=== PATIENT | male | born 1995 | race Caucasian/White ===

== ENCOUNTER 2018-11-09 19:51 | Emergency (ER) | payer BC ==
[2018-11-09 21:07] LABS: Hematocrit 44 % (42-52); Hemoglobin 15.5 g/dL (14.0-18.0); Mean Corpuscular HGB Conc 35 g/dL (31-36); Mean Corpuscular Hemoglobin 30 pg (27-31); Mean Corpuscular Volume 87 fL (80-94); Mean Platelet Volume 8.9 fL (7.4-10.4); Platelet Count 204 10^3/uL (150-450); Red Blood Count 5.09 10^6 /uL (4.18-5.48); Red Cell Distribution Width 13 % (10.5-15); White Blood Count 7.5 10^3/uL (3.5-10.8)
[2018-11-09 21:19] LABS: INR 1.13 (0.82-1.09)
[2018-11-09 21:24] LABS: Albumin 4.5 g/dL (3.2-5.2); Albumin/Globulin Ratio 1.4 (1-3); BUN/Creatinine Ratio 14.9 (8-20); Calcium 10.3 mg/dL (8.6-10.3); EGFR Non-African American 110.8 (>60); Globulin 3.3 g/dL (2-4); Potassium 3.7 mmol/L (3.5-5.0); Total Bilirubin 2.6 mg/dL (0.2-1.0); Total Protein 7.8 g/dL (6.4-8.9)
[2018-11-09 21:50] LABS: ABS Basophils 0.1 10^3/ul (0-0.2); ABS Eosinophils 0.1 10^3/ul (0-0.6); ABS Monocytes 0.5 10^3/ul (0-0.8); ABS Neutrophils 3.8 10^3/ul (1.5-7.7); Eosinophil % 0.8 %; Lymphocyte % 40.6 %; Nucleated Red Blood Cells % 0.3
[2018-11-09] MEDS ORDERED: NS 0.9% 1000 ML** 1,000 ML IV ONE (22:20)
--- NOTE | 2018-11-09 23:08 | ED ---
Complex/Multi-Sys Presentation - HPI Summary HPI Summary: Left upper quadrant abdominal pain 1 week. History of same. Not worse with eating, not worse with anything. Improved with Tums. Pain described as intermittent, at worse 5/10, lasts a few hours at a time. One episode of vomiting yesterday that contained black emesis. Patient also complains of episode of lightheadedness with syncopal episode today. Patient believes he hit his head on the toilet, with some pain to posterior head. Denies any other pain injury or symptoms. Denies fever, cough, sore throat, CP, SOB, diarrhea, change in urine, change in BM, penile or testicular symptoms, vision change, focal deficits, amnesia, oral trauma. Medical history is asthma. Nonsmoker, denies EtOH or recreational drug use. - History Of Current Complaint Chief Complaint: EDGIBleed Time Seen by Provider: 11/09/18 22:07 Hx Obtained From: Patient Onset/Duration: Gradual Onset, Lasting Days Timing: Intermittent, Lasting: Severity Currently: Moderate Severity Initially: Moderate Character: Dull Associated Signs And Symptoms: Positive: Nausea, Vomiting, Abdominal Pain - Allergies/Home Medications Allergies/Adverse Reactions: Allergies Allergy/AdvReac Type Severity Reaction Status Date / Time MS Cephalexin [Cephalexin] Allergy Mild rash Unverified 11/09/18 19:58 PMH/Surg Hx/FS Hx/Imm Hx Endocrine/Hematology History: Denies: Hx Anticoagulant Therapy Cardiovascular History: Denies: Hx Pacemaker/ICD Respiratory History: Reports: Hx Asthma History: Denies: Hx Dialysis Sensory History: Denies: Hx Eye Prosthesis Opthamlomology History: Denies: Hx Legally Blind EENT History: Denies: Hx Deafness Neurological History: Denies: Hx Dementia Psychiatric History: Denies: Hx Autism Infectious Disease History: No Infectious Disease History: Denies: Traveled Outside the [place] in Last 30 Days - Family History Known Family History: Positive: None - Social History Alcohol Use: Weekly Substance Use Type: Reports: None Smoking Status (MU): Never Smoked Tobacco Review of Systems Constitutional: Negative Eyes: Negative ENT: Negative Cardiovascular: Negative Respiratory: Negative Positive: Abdominal Pain, Vomiting, Nausea Genitourinary: Negative Musculoskeletal: Negative Skin: Negative Positive: Syncope Psychological: Normal All Other Systems Reviewed And Are Negative: Yes Physical Exam - Summary Physical Exam Summary: Small contusion to back of posterior head. No other evidence of trauma to mouth , face, head. Full range of motion of jaw and neck. No pain with palpation of back, chest wall, abdomen. Patient moving all 4 extremities freely without indication of pain. Abdomen soft nontender. Lung sounds clear to auscultation bilaterally. RRR. Triage Information Reviewed: Yes Vital Signs On Initial Exam: Initial Vitals Temp Pulse Resp BP Pulse Ox 95.5 F 103 18 124/83 97 11/09/18 19:56 11/09/18 19:56 11/09/18 19:56 11/09/18 19:56 11/09/18 19:56 Vital Signs Reviewed: Yes Appearance: Positive: Well-Appearing Skin: Positive: Warm Head/Face: Positive: Normal Head/Face Inspection Eyes: Positive: Normal ENT: Positive: Normal ENT inspection Dental: Negative: Dental Fracture @, Bleeding Neck: Positive: Supple Respiratory/Lung Sounds: Positive: Clear to Auscultation Cardiovascular: Positive: Normal Abdomen Description: Positive: Nontender Musculoskeletal: Positive: Normal Neurological: Positive: Normal Psychiatric: Positive: Normal AVPU Assessment: Alert - Dayan Coma Scale Best Eye Response: 4 - Spontaneous Best Motor Response: 6 - Obeys Commands Best Verbal Response: 5 - Oriented Coma Scale Total: 15 Diagnostics - Vital Signs Vital Signs Temp Pulse Resp BP Pulse Ox 11/09/18 19:56 95.5 F 103 18 124/83 97 - Laboratory Lab Results: Lab Results 11/09/18 11/09/18 11/09/18 Range/Units 20:59 20:59 20:59 WBC 7.5 (3.5-10.8) 10^3/uL RBC 5.09 (4.18-5.48) 10^6 /uL Hgb 15.5 (14.0-18.0) g/dL Hct 44 (42-52) % MCV 87 (80-94) fL MCH 30 (27-31) pg MCHC 35 (31-36) g/dL RDW 13 (10.5-15) % Plt Count 204 (150-450) 10^3/uL MPV 8.9 (7.4-10.4) fL Neut % (Auto) 50.3 % Lymph % (Auto) 40.6 % [place] % (Auto) 7.1 % Eos % (Auto) 0.8 % Baso % (Auto) 1.2 % Absolute Neuts (auto) 3.8 (1.5-7.7) 10^3/ul Absolute Lymphs (auto) 3.0 (1.0-4.8) 10^3/ul Absolute Monos (auto) 0.5 (0-0.8) 10^3/ul Absolute Eos (auto) 0.1 (0-0.6) 10^3/ul Absolute Basos (auto) 0.1 (0-0.2) 10^3/ul Absolute Nucleated RBC 0.0 10^3/ul Immature Gran % 3.0 (0-9) % Neutrophils % 37.0 % Band Neutrophils % 3.0 (0-8) % Lymphocytes % 41.0 % Reactive Lymphs % 16.0 H (0-6) % Monocytes % 3.0 % Nucleated RBC % 0.3 Normal RBC Morphology Normal (Normal) Hem Pathologist Commnt Pending INR (Anticoag Therapy) 1.13 H (0.82-1.09) APTT 38.0 (26.0-38.0) seconds Sodium 136 (135-145) mmol/L Potassium 3.7 (3.5-5.0) mmol/L Chloride 99 L (101-111) mmol/L Carbon Dioxide 25 (22-32) mmol/L Anion Gap 12 H (2-11) mmol/L BUN 13 (6-24) mg/dL Creatinine 0.87 (0.67-1.17) mg/dL Est GFR ( Amer) 134.0 (>60) Est GFR (Non-Af Amer) 110.8 (>60) BUN/Creatinine Ratio 14.9 (8-20) Glucose 115 H (70-100) mg/dL Calcium 10.3 (8.6-10.3) mg/dL Total Bilirubin 2.60 H (0.2-1.0) mg/dL AST 324 H (13-39) U/L ALT 602 H (7-52) U/L Alkaline Phosphatase 165 H (34-104) U/L Total Protein 7.8 (6.4-8.9) g/dL Albumin 4.5 (3.2-5.2) g/dL Globulin 3.3 (2-4) g/dL Albumin/Globulin Ratio 1.4 (1-3) Monoscreen Positive A (Negative) Result Diagrams: 11/09/18 20:59 11/09/18 20:59 Lab Statement: Any lab studies that have been ordered have been reviewed, and results considered in the medical decision making process. Complex Multi-Symp Course/Dx Course Of Treatment: Left upper quadrant abdominal pain 1 week. History of same. Not worse with eating, not worse with anything. Improved with Tums. Pain described as intermittent, at worse 5/10, lasts a few hours at a time. One episode of vomiting yesterday that contained black emesis. Patient also complains of episode of lightheadedness with syncopal episode today. Patient believes he hit his head on the toilet, with some pain to posterior head. Denies any other pain injury or symptoms. Denies fever, cough, sore throat, CP , SOB, diarrhea, change in urine, change in BM, penile or testicular symptoms, vision change, focal deficits, amnesia, oral trauma. Medical history is asthma. Nonsmoker, denies EtOH or recreational drug use. Physical exam:Small contusion to back of posterior head. No other evidence of trauma to mouth, face , head. Full range of motion of jaw and neck. No pain with palpation of back, chest wall, abdomen. Patient moving all 4 extremities freely without indication of pain. Abdomen soft nontender. Lung sounds clear to auscultation bilaterally. RRR. Vital signs within normal limits. Elevated liver enzymes. Labs otherwise unremarkable. Positive for mononucleosis. - Diagnoses Provider Diagnoses: Mononucleosis, GERD (gastroesophageal reflux disease) Discharge - Sign-Out/Discharge Documenting (check all that apply): Patient Departure Patient Received Moderate/Deep Sedation with Procedure: No - Discharge Plan Condition: Stable Disposition: HOME Prescriptions: Omeprazole 20 mg PO DAILY 30 Days #30 capsule. Patient Education Materials: Mononucleosis (ED), Gastroesophageal Reflux Disease (ED) Forms: *Work Release Referrals: No Primary Care Phys,NOPCP [Primary Care Provider] - Additional Instructions: Drink plenty of fluids to maintain hydration. Alternate ibuprofen 600 mg with Tylenol 650 mg every 3 hours for aches and fever. Return to the ED for any new or worsening symptoms. - Billing Disposition and Condition Condition: STABLE Disposition: Home
[2018-11-09] MEDS ORDERED: Pantoprazole TAB * 40 MG TAB PO ONE (23:14)
[2018-11-10 00:07] LABS: HIV 4th Generation Negative (Negative)
[2018-11-10 00:19] VITALS: BP 138/89
== END 2018-11-10 00:38 | disposition home or self-care (01) ==
LOC: ED 19:51
DX: B27.90 Infectious mononucleosis, unspecified without complication (principal); K21.9 Gastro-esophageal reflux disease without esophagitis; J45.909 Unspecified asthma, uncomplicated; S00.93XA Contusion of unspecified part of head, initial encounter; W22.8XXA Striking against or struck by other objects, initial encounter; R55 Syncope and collapse
CPT/HCPCS: 36415; 80053; 85025; 85060; 85610; 85730; 86308; 87389; 93005; 96360; 99283; A9270-GY

== ENCOUNTER 2019-06-06 11:45 | Emergency (ER) | payer BC ==
--- NOTE | 2019-06-06 11:55 | ED ---
HPI Chest Pain - HPI Summary HPI Summary: Patient is a 23 y/o M presenting to the ED for a chief complaint of left anterior chest pain that radiates to the left flank and back. Patient is present with his mother and sister. Patient describes his chest pain as a cramping sensation, which is currently resolved. The chest pain began at the beginning of May and occurs twice every other day, lasting 1-5 minutes before resolving. He also notes nausea and shortness of breath. Patient denies diaphoresis or bilateral LE edema. Patient denies any aggravating or alleviating factors. He denies similar chest pain since it began in May. He was previously seen at [place] by his PCP for his chest pain. FMHx is significant for cardiac disease and [place], but denies a in his family from an unexplained cause at an early age. Any PSHx, medications, or long distance travel is denied. He denies any tobacco, alcohol, or drug use. Patient works at an [employer] shop. Medications reviewed. Allergies noted. - History of Current Complaint Time Seen by Provider: 06/06/19 11:49 Hx Obtained From: Patient Onset/Duration: Started Days Ago, Atraumatic, Resolved Timing: Intermittent, Lasting Minutes - 1-5 minutes Initial Severity: Moderate Current Severity: Moderate Pain Intensity: 0 Pain Scale Used: 0-10 Numeric Chest Pain Location: Left Anterior Chest Pain Radiates: Yes Chest Pain Radiates To:: Back, Flank - Left Character: Other: - Cramping Aggravating Factor(s): Nothing Alleviating Factor(s): Nothing Associated Signs and Symptoms: Positive: Chest Pain, Shortness of Breath, Nausea , Back Pain. Negative: Diaphoresis, Edema - Bilateral LE - Allergy/Home Medications Allergies/Adverse Reactions: Allergies Allergy/AdvReac Type Severity Reaction Status Date / Time ceftriaxone Allergy Hives Verified 06/06/19 12:32 PMH/Surg Hx/FS Hx/Imm Hx Previously Healthy: Yes Endocrine/Hematology History: Denies: Hx Anticoagulant Therapy, Hx Diabetes Cardiovascular History: Denies: Hx Hypercholesterolemia, Hx Hypertension, Hx Pacemaker/ICD Respiratory History: Reports: Hx Asthma History: Denies: Hx Dialysis Sensory History: Denies: Hx Eye Prosthesis, Hx Legally Blind, Hx Deafness Opthamlomology History: Denies: Hx Eye Prosthesis, Hx Legally Blind EENT History: Denies: Hx Deafness Neurological History: Denies: Hx Dementia Psychiatric History: Denies: Hx Autism - Surgical History Surgical History: None Surgery Procedure, Year, and Place: None Infectious Disease History: No - Family History Known Family History: Positive: Cardiac Disease - [place] - Social History Occupation: Employed Full-time Lives: With Family Alcohol Use: Weekly Hx Substance Use: No Substance Use Type: Reports: None Hx Tobacco Use: No Smoking Status (MU): Never Smoked Tobacco Review of Systems Negative: Skin Diaphoresis Positive: Chest Pain - Left anterior Positive: Shortness Of Breath Positive: Nausea Positive: flank pain - Left Positive: Myalgia - Back. Negative: Edema - Bilateral LE All Other Systems Reviewed And Are Negative: Yes Physical Exam - Summary Physical Exam Summary: Constitutional: Well-developed, Well-nourished, Alert. Appears anxious. Skin: Warm, Dry HENT: Normocephalic; Atraumatic Eyes: Conjunctiva normal Neck: Musculoskeletal ROM normal neck. (-) JVD, (-) Stridor, (-) Tracheal deviation Cardio: Rhythm regular, tachycardic, Heart sounds normal; Intact distal pulses; Radial pulses are 2+ and symmetric. (-) Murmur Pulmonary/Chest wall: Effort normal. (-) Respiratory distress, (-) Wheezes, (-) Rales Abd: Soft, (-) Distension, (-) Guarding, (-) Rebound. Mild LUQ tenderness. Musculoskeletal: (-) Edema Lymph: (-) Cervical adenopathy Neuro: Alert, Oriented x3 Psych: Mood and affect Normal Triage Information Reviewed: Yes Vital Signs Reviewed: Yes Procedures - Sedation Patient Received Moderate/Deep Sedation with Procedure: No Diagnostics - Laboratory Result Diagrams: 06/06/19 12:00 06/06/19 13:46 Lab Statement: Any lab studies that have been ordered have been reviewed, and results considered in the medical decision making process. - Radiology Chest X-ray Radiology Interpretation Completed By: Radiologist Summary of Radiographic Findings: Chest X-ray IMPRESSION: No acute cardiopulmonary process by radiograph. Reviewed by Dr. Oneal. - EKG 11:48 Cardiac Rate: Tachycardia - 124 BPM EKG Rhythm: Sinus Tachycardia ST Segment: Normal Ectopy: None Summary of EKG Findings: EKG at 11:48 shows sinus tachycardia with 124 BPM, Q3 and T3, no STEMI. Reviewed and interpreted by Dr. Oneal. Re-Evaluation - Re-Evaluation First Eval Re-Evaluation Time: 13:07 Change: Improved Comment: At 13:07, heart rate is in the 70s, patient is asymptomatic. Chest Pain Course/Dx - Course Course Of Treatment: Patient was sent in from his primary care doctor. Patient' s had a couple weeks of periodic left upper quadrant pain that radiate into his chest. Patient was tachycardic upon arrival which improved with pulmonary of IV fluids. Patient had blood work form is grossly unremarkable including studies for the thyroid, PE, electrolyte abnormalities. Patient had a negative chest x-ray. Patient's heart rate went back to normal level. Patient does state he feels anxious and a lot of stuff in his life including a recent in the family. He was educated on breathing techniques and started on omeprazole. - Diagnoses Provider Diagnoses: LUQ abdominal pain, Tachycardia Discharge ED - Sign-Out/Discharge Documenting (check all that apply): Patient Departure - Discharge - Discharge Plan Condition: Stable Disposition: HOME Prescriptions: Pantoprazole TAB * [Protonix TAB*] 40 mg PO DAILY 14 Days #14 tab Patient Education Materials: Tachycardia (ED) Referrals: [facility] [Outside] Additional Instructions: PLEASE RETURN TO EMERGENCY DEPARTMENT FOR ANY WORSENING OR SEVERE ABDOMINAL PAIN , WORSENING CHEST PAIN, NEW OR WORSENING SYMPTOMS. Please follow up with your primary care physician. Please make all follow-ups in 1-3 days unless I advise you otherwise for a re-evaluation. Start your Protonix as prescribed. Avoid eating spicy foods, caffeine, alcohol, or any acidic foods. Do not eat within 3 hours of bedtime. - Billing Disposition and Condition Condition: STABLE Disposition: Home - Attestation Statements Document Initiated by Willian: Yes Documenting Scribe: Mery Altamirano Provider For Whom Willian is Documenting (Include Credential): Reed Oneal MD Scribe Attestation: Mery Negron, scribed for Reed Oneal MD on 06/06/19 at 173. Scribe Documentation Reviewed: Yes Provider Attestation: The documentation as recorded by the Mery rodriguez accurately reflects the service I personally performed and the decisions made by me, Reed Oneal MD Status of Scribe Document: Viewed
[2019-06-06] MEDS ORDERED: NS 0.9% 1000 ML** 1,000 ML IV ONE ×2 (11:57→14:04)
[2019-06-06 12:09] LABS: ABS Basophils 0.1 10^3/ul (0-0.2); ABS Lymphocytes 2.4 10^3/ul (1.0-4.8); ABS Monocytes 0.5 10^3/ul (0-0.8); Eosinophil % 0.1 %; Hematocrit 49 % (42-52); Lymphocyte % 30.3 %; Mean Corpuscular HGB Conc 35 g/dL (31-36); Mean Corpuscular Hemoglobin 30 pg (27-31); Mean Corpuscular Volume 86 fL (80-94); Mean Platelet Volume 8.2 fL (7.4-10.4); Nucleated Red Blood Cells % 0.1; Platelet Count 305 10^3/uL (150-450); Red Blood Count 5.62 10^6 /uL (4.18-5.48); Red Cell Distribution Width 13 % (10-15); White Blood Count 7.9 10^3/uL (3.5-10.8)
[2019-06-06 12:30] LABS: ALT 143 U/L (7-52); Albumin 5.4 g/dL (3.2-5.2); Albumin/Globulin Ratio 1.9 (1-3); Alkaline Phosphatase 106 U/L (34-104); Blood Urea Nitrogen 15 mg/dL (6-24); CO2 Carbon Dioxide 25 mmol/L (22-32); Calcium 10.2 mg/dL (8.6-10.3); Chloride 104 mmol/L (101-111); EGFR African American 121.4 (>60); EGFR Non-African American 100.4 (>60); Globulin 2.8 g/dL (2-4); Glucose 114 mg/dL (70-100); Magnesium 2.1 mg/dL (1.9-2.7); Sodium 138 mmol/L (135-145); Total Protein 8.2 g/dL (6.4-8.9)
[2019-06-06] MEDS ORDERED: Al Hydrox/Mg Hydrox/Simet LIQ* 30 ML UDC PO ONE (12:54)
[2019-06-06 13:30] LABS: TSH (Thyroid Stimulating Horm) 2.86 mcIU/mL (0.34-5.60)
[2019-06-06 13:33] LABS: Anion Gap 9 mmol/L (2-11); Free T4 0.97 ng/dL (0.61-1.12)
[2019-06-06 14:08] LABS: Potassium Redraw 4.2 mmol/L (3.5-5.0)
[2019-06-06 15:39] VITALS: BP 140/96
== END 2019-06-06 15:37 | disposition home or self-care (01) ==
LOC: ED 11:45
DX: R10.12 Left upper quadrant pain (principal); R00.0 Tachycardia, unspecified; J45.909 Unspecified asthma, uncomplicated; Z88.1 Allergy status to other antibiotic agents
CPT/HCPCS: 36415; 71046; 80053; 83605; 83735; 84439; 84443; 84484; 85025; 85379; 93005; 96360; 96361; 99283; A9270-GY